=== PATIENT | male | born 1950 | race Caucasian/White ===

== ENCOUNTER 2017-07-02 10:17 | Emergency (ER) | payer OTHER ==
[~2017-07-02] VITALS: Ht 170.2 cm; Wt 83.2 kg
[2017-07-02 11:20] LABS: BASOPHIL COUNT 0.1 K/uL (0-0.1); EOSINOPHIL (%) 3.3 % (0-5); EOSINOPHIL COUNT 0.2 K/uL (0-0.3); HEMATOCRIT 48.9 % (38.0-50.0); IMMATURE GRANULOCYTE (%) 0.2 % (0.0-0.7); INSTRUMENT ABS NEUTROPHIL CT 3.9 K/uL; LYMPHOCYTE COUNT 1.2 K/uL (1.0-2.8); MCH 29.9 PG (29.0-34.0); MCHC 33.3 G/DL (30.0-36.0); MCV 89.7 FL (86-99); MEAN PLAT.VOLUME 10.2 uM^3 (9.0-12.4); MONOCYTE (%) 8.1 % (3-12); MONOCYTE COUNT 0.5 K/uL (0-0.8); NEUTROPHIL (%) 66.3 % (45-76); NEUTROPHIL COUNT 3.9 K/uL (1.8-6.4); PLATELET COUNT 189 K/uL (156-360); RBC DIS.WIDTH-SD 39.3 % (39-53); RED BLOOD COUNT 5.45 M/uL (4.00-5.50); WHITE BLOOD COUNT 5.8 K/uL (4.1-10.2)
[2017-07-02 11:28] LABS: CHLORIDE 105 mEq/L (99-109); POTASSIUM 4.2 mEq/L (3.7-5.4); SODIUM 141 mEq/L (136-147)
[2017-07-02 11:30] LABS: GLUCOSE 111 mg/dL (70-99)
[2017-07-02 11:31] LABS: ANION GAP 11 MEQ/L (2-14)
[2017-07-02 11:34] LABS: GFR ESTIMATE (CALCULATED) > 59 mL/min/
[2017-07-02 11:35] LABS: UREA NITROGEN (BUN) 12 mg/dL (9-23)
[2017-07-02 13:30] VITALS: BP 108/69
== END 2017-07-02 13:30 | disposition home or self-care (01) ==
LOC: EME 10:17
PROVIDERS: Emergency Medicine
DX: I10 Essential (primary) hypertension (principal)
CPT/HCPCS: 80048; 85025; 99281; 99284

== ENCOUNTER 2017-07-05 21:48 | Emergency (ER) | payer OTHER ==
[~2017-07-05] VITALS: Ht 170.2 cm; Wt 84.6 kg
[2017-07-05 22:20] LABS: HEMATOCRIT 46.8 % (38.0-50.0); MCH 30.1 PG (29.0-34.0); MCHC 33.5 G/DL (30.0-36.0); MCV 89.7 FL (86-99); MEAN PLAT.VOLUME 10.2 uM^3 (9.0-12.4); PLATELET COUNT 177 K/uL (156-360); RBC DIS.WIDTH-CV 12.3 % (11.8-14.6); RBC DIS.WIDTH-SD 40.3 % (39-53); RED BLOOD COUNT 5.22 M/uL (4.00-5.50); WHITE BLOOD COUNT 6.7 K/uL (4.1-10.2)
[2017-07-05 22:28] LABS: CHLORIDE 108 mEq/L (99-109); POTASSIUM 3.8 mEq/L (3.7-5.4); SODIUM 141 mEq/L (136-147)
[2017-07-05 22:30] LABS: GLUCOSE 108 mg/dL (70-99)
[2017-07-05 22:31] LABS: ANION GAP 9 MEQ/L (2-14)
[2017-07-05 22:34] LABS: GFR ESTIMATE (CALCULATED) 58 mL/min/; UREA NITROGEN (BUN) 11 mg/dL (9-23)
[2017-07-05 22:39] LABS: TROP-I INTERPRETATION NEGATIVE; TROPONIN-I < 0.01 ng/mL (0.0-0.30)
[2017-07-06 01:43] LABS: TROP-I INTERPRETATION NEGATIVE; TROPONIN-I < 0.01 ng/mL (0.0-0.30)
[2017-07-06] MEDS ORDERED: LISINOPRIL20 MG PO (01:55)
[2017-07-06 02:07] VITALS: BP 151/83
== END 2017-07-06 02:08 | disposition home or self-care (01) ==
LOC: EME 21:48
PROVIDERS: Emergency Medicine
DX: I10 Essential (primary) hypertension (principal); R07.89 Other chest pain; R00.1 Bradycardia, unspecified; E78.5 Hyperlipidemia, unspecified
CPT/HCPCS: 71020; 80048; 84484; 85027; 93005; 99281; 99285

== ENCOUNTER 2018-03-01 08:19 | Observation (INO) | payer OTHER ==
[~2018-03-01] VITALS: Ht 170.2 cm; Wt 83.2 kg
[~2018-03-01 08:19] MED LIST: LISINOPRIL20 MG PO
[2018-03-01 08:56] LABS: BASOPHIL (%) 0.6 % (0-1); BASOPHIL COUNT 0.1 K/uL (0-0.1); EOSINOPHIL (%) 1.9 % (0-5); EOSINOPHIL COUNT 0.2 K/uL (0-0.3); HEMATOCRIT 48.9 % (38.0-50.0); HEMOGLOBIN 16.4 G/DL (12.5-16.6); IMMATURE GRANULOCYTE (%) 0.4 % (0.0-0.7); LYMPHOCYTE (%) 17.8 % (15-42); LYMPHOCYTE COUNT 1.9 K/uL (1.0-2.8); MCH 30.4 PG (29.0-34.0); MCHC 33.5 G/DL (30.0-36.0); MCV 90.6 FL (86-99); MONOCYTE COUNT 0.8 K/uL (0-0.8); NEUTROPHIL (%) 72.3 % (45-76); NEUTROPHIL COUNT 7.8 K/uL (1.8-6.4); PLATELET COUNT 230 K/uL (156-360); RBC DIS.WIDTH-CV 12.2 % (11.8-14.6); RBC DIS.WIDTH-SD 40.1 % (39-53); WHITE BLOOD COUNT 10.8 K/uL (4.1-10.2)
[2018-03-01 09:00] LABS: INTER. NORMALIZED RATIO 1.1
[2018-03-01 09:01] LABS: ALBUMIN 4.1 g/dL (3.2-4.8); CHLORIDE 107 mEq/L (99-109); POTASSIUM 4.6 mEq/L (3.7-5.4); SODIUM 141 mEq/L (136-147)
[2018-03-01 09:04] LABS: GLUCOSE 151 mg/dL (70-99); TOTAL PROTEIN 6.8 g/dL (6.4-8.3)
[2018-03-01 09:05] LABS: TOTAL BILIRUBIN 0.6 mg/dL (0.0-1.0)
[2018-03-01 09:07] LABS: ALKALINE PHOSPHATASE 87 IU/L (3-129); CREATININE 1.7 mg/dL (0.6-1.3); GFR ESTIMATE (CALCULATED) 43 mL/min/ (58.99-99999)
[2018-03-01 09:08] LABS: UREA NITROGEN (BUN) 20 mg/dL (9-23)
[2018-03-01 09:09] LABS: AST (GOT) 18 IU/L (2-34); DIRECT BILIRUBIN 0.2 mg/dL (0.0-0.3)
[2018-03-01 09:10] LABS: ALT (GPT) 20 IU/L (3-49)
[2018-03-01 09:11] LABS: LIPASE 30 U/L (1.0-51.0)
[2018-03-01 09:13] LABS: PTT 26.4 SEC (25-37)
[2018-03-01 09:14] LABS: TROP-I INTERPRETATION NEGATIVE; TROPONIN-I < 0.01 ng/mL (0.0-0.30)
[2018-03-01 09:57] LABS: APPEARANCE CLEAR ((CLEAR)); BILIRUBIN NEGATIVE; BLOOD NEGATIVE; COLOR YELLOW ((YELLOW)); GLUCOSE (STRIP) NEGATIVE; KETONES NEGATIVE; LEUKOCYTES NEGATIVE; NITRITE NEGATIVE; PROTEIN (STRIP) NEGATIVE; SPECIFIC GRAVITY 1.009 (1.000-1.030); UCUL ADDED? NO; UROBILINOGEN 0.2 MG/DL (0.2-1.0)
[2018-03-01] MEDS ORDERED: ZOCOR40 MG PO (10:21)
[2018-03-01] MEDS ORDERED: VITAMIN D33000 UNIT PO (10:22)
[2018-03-01] MEDS ORDERED: ONCE DAILY1 EACH PO (10:22)
[2018-03-01] MEDS ORDERED: LOPRESSOR50 MG PO (10:22)
[2018-03-01] MEDS ORDERED: DIOVAN HCT 11 TABLET PO (10:22)
[2018-03-01 12:06] VITALS: BP 148/87
[2018-03-01 12:07] VITALS: BP 148/87
[2018-03-01 16:18] VITALS: BP 147/80
[2018-03-01 21:23] VITALS: BP 152/75
[2018-03-02 01:15] VITALS: BP 130/73
[2018-03-02 03:45] VITALS: BP 126/76
[2018-03-02 05:59] LABS: TROP-I INTERPRETATION NEGATIVE; TROPONIN-I < 0.01 ng/mL (0.0-0.30)
[2018-03-02 06:05] LABS: CHLORIDE 107 MEQ/L (99-109); CREATININE 1.4 MG/DL (0.6-1.3); GFR ESTIMATE (CALCULATED) 53 mL/min/ (58.99-99999); HEMATOCRIT 38.9 % (38.0-50.0); MCH 30.3 PG (29.0-34.0); MCHC 33.4 G/DL (30.0-36.0); MCV 90.7 FL (86-99); POTASSIUM 3.8 MEQ/L (3.7-5.4); RBC DIS.WIDTH-SD 39.9 % (39-53); SODIUM 140 MEQ/L (136-147); UREA NITROGEN (BUN) 19 mg/dL (9-23); WHITE BLOOD COUNT 5.5 K/uL (4.1-10.2)
[2018-03-02 06:06] LABS: GLUCOSE 91 mg/dL (70-99)
[2018-03-02 06:14] LABS: PLAT.SUFFICIENCY DECREASED
[2018-03-02 06:20] LABS: RED BLOOD COUNT 4.29 M/uL (4.00-5.50)
[2018-03-02 06:21] LABS: PLATELET COUNT 144 K/uL (156-360)
[2018-03-02 07:50] VITALS: BP 175/90
[2018-03-02 10:00] LABS: D-DIMER ELISA < 150.00 ng/mLDDU (<230)
[2018-03-02 11:53] VITALS: BP 103/65
== END 2018-03-02 13:45 | disposition home or self-care (01) ==
LOC: EME 08:19 → 4EAST 10:12 → EDOF 10:12 → 4EAST 10:12 → ENRESERV 10:22 → 4EAST 11:49
PROVIDERS: Emergency Medicine; Hospitalist; Internal Medicine Cardiovascular Disease; Physician Assistant
PROC: 5A2204Z Restoration of Cardiac Rhythm, Single (ICD-10-PCS; principal; 2018-03-01)
DX: I47.1 Supraventricular tachycardia (principal); I12.9 Hypertensive chronic kidney disease with stage 1 through stage 4 chronic kidney disease, or unspecified chronic kidney disease; N18.3 Chronic kidney disease, stage 3 (moderate); E78.5 Hyperlipidemia, unspecified; Z80.0 Family history of malignant neoplasm of digestive organs; Z82.49 Family history of ischemic heart disease and other diseases of the circulatory system; Z83.3 Family history of diabetes mellitus
CPT/HCPCS: 71045; 80048; 80076; 81003; 83605; 83690; 83880; 84484; 85025; 85027; 85379; 85610; 85730; 86850; 86900; 86901; 93005; 99281; 99285; G0378; J2250; J3010; J7030

== ENCOUNTER 2018-03-06 01:47 | Emergency (ER) | payer OTHER ==
[~2018-03-06] VITALS: Ht 170.2 cm; Wt 83.4 kg
[~2018-03-06 01:47] MED LIST changes: +DIOVAN HCT 11 TABLET PO; +LOPRESSOR50 MG PO; +ONCE DAILY1 EACH PO; +VITAMIN D33000 UNIT PO; +ZOCOR40 MG PO
[2018-03-06 02:20] LABS: HEMATOCRIT 43.6 % (38.0-50.0); HEMOGLOBIN 15.1 G/DL (12.5-16.6); MCH 30.9 PG (29.0-34.0); MCHC 34.6 G/DL (30.0-36.0); MCV 89.3 FL (86-99); PLATELET COUNT 170 K/uL (156-360); RBC DIS.WIDTH-CV 12.3 % (11.8-14.6); RBC DIS.WIDTH-SD 39.8 % (39-53); RED BLOOD COUNT 4.88 M/uL (4.00-5.50); WHITE BLOOD COUNT 8.4 K/uL (4.1-10.2)
[2018-03-06 02:30] LABS: CHLORIDE 109 mEq/L (99-109); SODIUM 144 mEq/L (136-147)
[2018-03-06 02:31] LABS: GLUCOSE 118 mg/dL (70-99)
[2018-03-06 02:35] LABS: CREATININE 1.6 mg/dL (0.6-1.3); GFR ESTIMATE (CALCULATED) 46 mL/min/ (58.99-99999)
[2018-03-06 02:36] LABS: UREA NITROGEN (BUN) 17 mg/dL (9-23)
[2018-03-06 02:39] LABS: TROP-I INTERPRETATION NEGATIVE; TROPONIN-I < 0.01 ng/mL (0.0-0.30)
[2018-03-06 04:55] VITALS: BP 142/90
== END 2018-03-06 04:56 | disposition home or self-care (01) ==
LOC: EME 01:47
PROC: 5A2204Z Restoration of Cardiac Rhythm, Single (ICD-10-PCS; principal; 2018-03-06)
DX: I48.91 Unspecified atrial fibrillation (principal); I10 Essential (primary) hypertension; E78.5 Hyperlipidemia, unspecified
CPT/HCPCS: 71045; 71046; 80048; 84484; 85027; 93005; 99281; 99285